=== PATIENT | female | born 1980 | race Caucasian/White ===

== ENCOUNTER 2022-01-12 07:34 | Day surgery (SDC) | payer MEDICAID, SELFPAY ==
[2022-01-12] VITALS (9 sets, daily range): BP systolic 108–151; BP diastolic 55–80; PULSE 68–100; RESP 12–18; TEMP 36.4–36.7; O2SAT 91–99; BMI 31.6
--- NOTE | 2022-01-12 | THYROID_PTH ---
PATIENT: ALIDA WASHINGTON LOC: [facility] [place] U#:[id number] AGE/SX: 41/F ROOM: RE01/12/[address]: Dr. Rogers Collazo MD : 1980 BED: DIS: 01/12/2022 SPEC #: [id number] RECD: 01/12/22 10:29 STATUS: TODD DARIA #: [id number] SOFY: 01/12/22 00:[address]: Rogers Collazo DEPT: SURGICAL PATHOLOGY RECD BY: Crystal Jeter ENTERED: 01/12/22 11:29 SP TYPE: THYROID OTHR DR: Dr. Lee Ambrosio MD Tissues: Thyroid gland, NOS Procedures: Frozen Section (charge) Surgery Specimen Level V HEADER OPERATION: Hemithyroidectomy, frozen section PRE-OP DIAGNOSIS: Nontoxic single thyroid nodule, left TISSUE SUBMITTED: Left thyroid nodule FROZEN SECTION DIAGNOSIS Left thyroid nodule: Cellular follicular lesion. SJ:radha 01/12/2022 MICROSCOPIC DIAGNOSIS Left thyroid nodule, lobectomy: Consistent with follicular adenoma. AM:radha 01/15/2022 COMMENT Case has been reviewed in consultation with Dr. Avalos who concurs with the above diagnosis. IDC:MOHAMUD MICROSCOPIC DESCRIPTION Slides are reviewed. GROSS DESCRIPTION Received fresh for frozen section diagnosis labeled with the patient's name is a specimen designated left thyroid nodule. The specimen consists of a thyroid lobectomy specimen weighing 9.9 gm and measuring 5 x 3 x 1.5 cm. No external parathyroid tissue is identified. The specimen is inked as follows: anterior surface - blue, posterior surface - black. Serial sections reveal a paredes-pink, solid nodule in the lower portion of the thyroid lobe measuring 2 x 1.5 x 1 cm. A section of the nodule with surrounding tissue is submitted for frozen section diagnosis. The entire specimen is submitted in seven cassettes as follows: 1 - frozen section, 2-7 - rest of the specimen (2 containing most superior portion and 7 containing most inferior portion). / SJ:radha 01/12/2022 TC:1 CPT: 68653, 14844
[2022-01-12] MEDS: Lactated Ringers 1,000 ML 15 ML IV ×2 (08:05→10:01)
[2022-01-12 08:17] LABS: Hematocrit 36.9 % (37-47); Hemoglobin 13.2 g/dL (12.0-15.0); Mean Corp Hgb Conc 35.8 g/dL (32-36); Mean Corpuscular Hgb 33.1 pg (27.0-32.0); Mean Corpuscular Volume 92.5 fL (81-99); Mean Platelet Vol. 9.3 fl (6.2-12.0); Platelet Count 289 K/mm3 (150-450); RBC Distribution Width CV 12.3 % (11.6-14.6); RBC Distribution Width SD 42.3 fl (35.1-43.9); Red Blood Count 3.99 M/mm3 (4.2-5.4)
[2022-01-12] MEDS: Gabapentin 300 MG Capsule PO (08:34)
[2022-01-12 08:36] LABS: AST(SGOT) 13 U/L (15-37); Alanine Aminotransfer ALT/SGPT 22 U/L (13-56); Albumin, Serum 3.7 g/dL (3.2-5.0); Alkaline Phosphatase 75 U/L (45-117); Anion Gap 4 (5-15); BUN 12 mg/dL (7-18); BUN/Creat Ratio 12.8 RATIO (10-20); Bilirubin, Direct 0.12 mg/dL (0.00-0.30); Calcium,Total 8.8 mg/dL (8.5-10.1); Chloride 110 mmol/L (98-107); Creatinine, Serum 0.94 mg/dL (0.55-1.02); EST Glomerular Filtration Rate 69 mL/min (>60); Est Glom Filt Rate - Afr Amer 84 mL/min (>60); Estimated Creatinine Clearance 72.99 ml/min; Globulin 3.8 g/dL (2.2-4.2); Glucose 97 mg/dL (74-106); Potassium 3.5 mmol/L (3.5-5.1); Protein, Total 7.5 g/dL (6.4-8.2); Sodium Level 137 mmol/L (136-145)
[2022-01-12 08:59] LABS: International Normalized Ratio 1.1; Prothrombin Time (Protime)PT. 13.4 SECONDS (11.7-14.9)
[2022-01-12 09:00] LABS: Partial Thromboplast Time 27.3 Seconds (24.1-36.2)
[2022-01-12] MEDS: Lidocaine 1%/Epi 1:200 (30ml) 30 ML AMPUL (09:40)
--- NOTE | 2022-01-12 10:53 | OP.PCM_ITS ---
Problems Associated Problem List Diagnoses (1) Nontoxic single thyroid nodule: Report of Operation Date of Procedure: 01/12/22 Pre-Operative Diagnosis: Suspicious solitary left thyroid nodule Post-Operative Diagnosis: Same Surgery/Procedure Performed:: Left hemithyroidectomy Description of Surgical Findings:: Noemi is a 41-year-old female with a slowly enlarging left thyroid nodule with an indeterminant biopsy and a family history of thyroid carcinoma. Discussed her significant concern and hemithyroidectomy for definitive evaluation as well as curative intent was offered and she was eager to proceed. The risks, alternatives, potential complications, and benefits were discussed at length and any questions answered to the patient and/or caregiver's satisfaction. Witnessed informed consent was obtained in the office, and the patient and/or caregiver was agreeable to proceed. Procedure went as follows: The patient was identified in the preoperative holding and brought to the operating room, placed under general anesthesia and intubated with a neuromonitoring tube. The grounding electrodes were then placed on the chest and confirmed to be operational in accordance with the director of business services's directions to allow for recurrent laryngeal nerve monitoring. The neck was then prepped and draped in usual sterile fashion and the planned skin incision was marked 2 finger breadths above the sternal notch with a marking pen. The incisional line was then injected with 1% lidocaine with 100,000 epinephrine for a total of 4 mL. After allowing for vasoconstriction, a 15 blade scalpel was used to make an incision 6 cm in length through the skin and subcutaneous tissues and platysma. A subplatysmal flap was then elevated superiorly and inferiorly to allow for placement of the self-retaining retractors. The strap muscles were then divided in the midline and beginning on the left side the thyroid lobe dissected in a sub-capsular fashion. The inferior, middle, and superior thyroid vessels were individually clamped and ligated with a combination of 3-0 silk sutures and vascular clips. The parathyroid glands were identified along the inferior vascular pedicle and pres erved. The recurrent laryngeal nerve was also identified and followed to its nerve entry point and the thyroid gland dissected free of its attachments to the trachea at Broyle's ligament. This was then transected at the isthmus and sent for pathologic evaluation. The wound bed was then irrigated saline solution and examined for sites of bleeding. No significant bleeding was encountered and the strap muscles were then re-approximated in the midline with a running 3-0 Vicryl suture followed by interrupted 3-0 Vicryl sutures to close the platysma and subcutaneous tissues. A 5-0 Monocryl was then used to close the skin followed by Steri-Strips completing the procedure. The patient was then returned to anesthesia, revived and extubated having tolerated the procedure well. Surgeon: Rogers Collazo Type of Anesthesia: General Anesthesiologist: Rogers Bourne Special Medications: none Specimen's removed: left thyroid lobe Drains: none Estimated Blood Loss (mL): 0 mL Fluids Replaced: 1200 mL Grafts/Implants Used: none Complications none Admit VTE Documentation VTE Present on Admission: No VTE Mechan Device Prophylaxis: SCD's VTE Pharm Prophylaxis ordered?: No
--- NOTE | 2022-01-12 11:00 | PCM.DC ---
Discharge Instructions Diet Discharge Diet: No restrictions Activity Discharge Activity: Return to Normal Activity Weight Bearing Status: Weight bearing as tolerated Dressing / Incision Call your doctor if your incision/area has: Sudden Increased Bleeding, Increased Pain/ Swelling and Swelling at the incision site Call your doctor if you observe: Fever of 101 or Higher, Shortness of breath and Uncontrolled pain Suture Line Care: Avoid Pulling/Pushing Cleanse incision/area with: Soap & Water Additional Dressing/Incision Instructions:: Keep dry for 48 hours Follow Up Care Please Follow Up With: Rogers Collazo MD When: 1 week Test Results: Test results from this visit will be discussed in further detail at your follow-up appointment, if applicable. Discharge Plan Admission Primary Reason for Your Visit: left thyroid nodule Attending Provider: Rogers Collazo Primary Care Provider: Lee Ambrosio Discharge Orders/Prescriptions Prescriptions: New acetaminophen 500 mg Tablet 500 mg PO Q4H PRN PRN (Reason: Pain Score 1-5/10) Qty: 0 RF: 0 ibuprofen 200 mg Tablet 400 mg PO Q6H PRN PRN (Reason: Pain Score 4-10/10) Qty: 0 RF: 0 No Action primidone 50 mg Tablet 50 mg PO BID RF: 0 citalopram [Celexa] 40 mg Tablet 40 mg PO DAILY RF: 0 ibuprofen 800 mg Tablet 800 mg PO BID RF: 0 dextroamphetamine-amphetamine [Adderall] 10 mg Tablet 20 mg PO BID RF: 0 omeprazole 40 mg Capsule,Delayed Release(Dr/Ec) 40 mg PO DAILY RF: 0 baclofen 10 mg Tablet 20 mg PO QHS RF: 0 baclofen 10 mg Tablet 10 mg PO DAILY RF: 0 nortriptyline 10 mg Capsule 10 mg PO QHS RF: 0 gabapentin 300 mg Capsule 300 mg PO 1200 RF: 0 acyclovir 200 mg Capsule 200 mg PO DAILY RF: 0 topiramate 100 mg Tablet 100 mg PO BID RF: 0 bupropion HCl [Wellbutrin XL] 300 mg Tablet Extended Release 24 Hr 450 mg PO DAILY RF: 0 gabapentin 300 mg Tablet 900 mg PO BID RF: 0 Referrals / Follow Up: Lee Ambrosio MD [Primary Care Provider] - Disposition Disposition (needs filled in before D/C Order can be placed): Home, Self Care
== END 2022-01-12 23:59 | disposition home or self-care (01) ==
LOC: SDC 07:41 → AC 07:59 → MS3 11:01
PROVIDERS: Anesthesiology; PCP Family Medicine; Referring Provider Otolaryngology; Visit Provider Otolaryngology
PROC: (CPT 60210; principal; 2022-01-12 08:50)
DX: D34 Benign neoplasm of thyroid gland (principal); M19.90 Unspecified osteoarthritis, unspecified site; K21.9 Gastro-esophageal reflux disease without esophagitis; F32.A Depression, unspecified; F41.9 Anxiety disorder, unspecified; F17.290 Nicotine dependence, other tobacco product, uncomplicated; Z20.822 Contact with and (suspected) exposure to COVID-19; Z79.899 Other long term (current) drug therapy; Z86.73 Personal history of transient ischemic attack (TIA), and cerebral infarction without residual deficits; Z80.8 Family history of malignant neoplasm of other organs or systems
CPT/HCPCS: 60210; 00320; 80048; 80076; 85027; 85610; 85730; 87426; 88307; 88331; J7120; J2405; J3490